=== PATIENT | male | born 1965 | race Caucasian/White ===

== ENCOUNTER → 2017-01-05 | Outpatient (CLI) | payer MEDICARE, MEDICAID ==
[~2017-01-05] MED LIST: AURALGAN O10 ML/BOTT OT; BACTROBAN2% TP; CIPRO 500MG TA500 MG PO; CIPRODEX 0.3%-7.5 ML OT; FLEXERIL10 MG PO; HYDROCODONE-APA1 TA1 PO; MILK THISTLE1 CAP PO; MOTRIN800 MG PO; MULTI VITAMINS1 TA1 PO; NAPROSYN500 M1 PO; NEURONTIN800 MG PO; NICOTINE PATCH;21 MG TD; NOMEDS; OXYCODONE SR 2020 MG PO; PHENERGAN W/CO473 ML PO; PROVENTIL0.09 MG/A1 IH; RIBAVIRIN PO; ROBAXIN-750750 MG PO; SEPTRA DS 800 M1 TAB PO; SOVALDI400 MG PO; TAMIFLU75 MG PO; ULTRAM50 MG PO; WELLBUTRIN SR100 MG PO; ZANAFLEX4 MG PO
== END ==
LOC: RT 10:00
DX: J44.9 Chronic obstructive pulmonary disease, unspecified (principal)